=== PATIENT | female | born 1970 | race Caucasian/White ===

== ENCOUNTER 2017-08-06 09:30 | Outpatient (CLI) | payer BC ==
--- NOTE | 2017-08-06 11:32 | ULT ---
ABDOMINAL ULTRASOUND: Date: 08-06-17 History: Abdominal pain. FINDINGS: Portions of the right hepatic lobe are obscured due to shadowing from adjacent ribs which limits adeq uate evaluation of the right hepatic lobe. Left hepatic lobe demonstrates a normal sonographic appear ance. There is enlargement of the liver in craniocaudal dimensions measuring 18.5 cm. There is a nonmobile echogenic focus of posterior shadowing seen in the region of the neck of the gal lbladder measuring 1.5 cm. There is no gallbladder wall thickening or pericholecystic fluid present. The common duct measures 0.4 cm in diameter which is within normal limits. The visualized portions of the pancreas, visualized portion of the IVC, abdominal aorta, spleen, and bilateral kidneys demonstrate a normal sonographic appearance. The right kidney measures 11.4 cm in l ength with left kidney measuring 11.6 cm in length. IMPRESSION: 1. Cholelithiasis. There is a single nonmobile calculus in the gallbladder neck. No gallbladder wall thickening or pericholecystic fluid is present. 2. Common duct is normal in caliber. 3. Limited evaluation of the right hepatic lobe, primarily related to shadowing from adjacent ribs an d difficulty imaging the right hepatic lobe. No gross abnormality is appreciated. POS: [facility]
--- NOTE | 2017-08-06 11:37 | ULT ---
PELVIC ULTRASOUND WITH TRANSABDOMINAL AND TRANSVAGINAL VASCULAR DUPLEX WITH COLOR AND SPECTRAL DOPPLER IMAGING: History: 46-year-old female with right lower quadrant pain. FINDINGS: The patient has undergone prior hysterectomy. Right ovary measures 0.9 x 1.4 x 1.8 cm. The left ovary measures 1.2 x 1.8 x 2.0 cm. No evidence for solid or cystic mass within the pelvis. No abnormal flu id collection. Vascular duplex examination demonstrates vascular flow to both ovaries. No evidence for ovarian torsi on. IMPRESSION: Unremarkable post hysterectomy pelvis. Unremarkable right and left ovaries. No mass, abscess, abnorma l fluid collection or other acute process. POS: [facility]
--- NOTE | 2017-08-06 15:50 | MMO ---
BILATERAL DIGITAL SCREENING MAMMOGRAMS: FINDINGS: 46-year-old female presents for digital screening mammography. Comparison: None. FINDINGS: Scattered areas of fibroglandular density are noted in both breasts. There is an occasional typically benign calcification. No direct or indirect evidence of malignancy. This study is interpreted with the assistance of computer aided detection. IMPRESSION: BIRADS category 2 - benign findings. Continued routine screening. POS: [facility]
== END 2017-08-06 09:31 | disposition home or self-care (01) ==
LOC: SCSULT 09:30
PROVIDERS: ATTEND Family Medicine
DX: Z12.31 Encounter for screening mammogram for malignant neoplasm of breast (principal); R10.31 Right lower quadrant pain; Z90.710 Acquired absence of both cervix and uterus
CPT/HCPCS: 76700; 76856; 77067

== ENCOUNTER 2021-02-23 18:12 | Emergency (ER) | payer OTHER, SELFPAY | END 2021-02-23 21:10 | disposition home or self-care (01) | LOC: ERS 18:12 | DX: N19 Unspecified kidney failure (principal); I10 Essential (primary) hypertension; Z45.2 Encounter for adjustment and management of vascular access device | CPT/HCPCS: 99281 ==

== ENCOUNTER 2021-02-27 12:08 | Emergency (ER) | payer MEDICARE, SELFPAY ==
[2021-02-27 13:11] LABS: #Eosinphils 0.1 thou/uL (0.0-0.7); #Lymphocytes 1.6 thou/uL (1.20-3.40); #Monocytes 0.5 thou/uL (0.11-0.59); #Neutrophils 4.2 thou/uL (1.40-6.50); %Basophils 0.4 % (0.0-1.0); %Eosinophils 2.1 % (0.0-10.0); %Lymphocytes 25.2 % (21.0-51.0); %Monocytes 7.4 % (0.0-10.0); Hemoglobin 13.1 g/dL (12.0-16.0); Mean Corpuscular HGB CONC 33.7 g/dL (32.0-36.0); Mean Corpuscular Hemoglobin 31.2 pg (27.0-31.0); Mean Corpuscular Volume 92.5 fL (78.0-98.0); Platelet Count 254 thou/uL (130-400); RBC Distribution Width 14.1 % (11.5-14.5); Red Blood Cell (RBC) Count 4.22 mill/uL (4.20-5.40); White Blood Cell (WBC) Count 6.4 thou/uL (4.8-10.8)
[2021-02-27 13:38] LABS: ALT (SGPT) 21 U/L (8-55); AST (SGOT) 19 U/L (5-34); Albumin 3.7 g/dL (3.5-5.0); Alkaline Phosphatase 74 U/L (40-110); Anion Gap 13 mmol/L (10-20); BUN (Urea Nitrogen) 42 mg/dL (7.0-18.7); Bilirubin, Total 0.2 mg/dL (0.2-1.2); Calc. Creatinine Clearance 0 mL/min (70-130); Calcium 9.5 mg/dL (7.8-10.44); Carbon Dioxide 21 mmol/L (22-29); Chloride 110 mmol/L (98-107); Globulin 3.7 g/dL (2.4-3.5); Glucose 117 mg/dL (70-105); Potassium 3.8 mmol/L (3.5-5.1); Protein, Total 7.4 g/dL (6.0-8.3); Sodium 140 mmol/L (136-145)
[2021-02-27] MEDS ORDERED: Vancomycin 1 GM/200 ML BAG ONE (14:29)
[2021-02-27 16:15] LABS: SARS-CoV-2 NAA Rapid Test Not Detected (NotDetected)
== END 2021-02-27 15:56 | disposition home or self-care (01) ==
LOC: ERS 12:08
DX: T82.41XA Breakdown (mechanical) of vascular dialysis catheter, initial encounter (principal); T85.71XA Infection and inflammatory reaction due to peritoneal dialysis catheter, initial encounter; Z20.822 Contact with and (suspected) exposure to COVID-19; I10 Essential (primary) hypertension; Z86.73 Personal history of transient ischemic attack (TIA), and cerebral infarction without residual deficits; Z99.2 Dependence on renal dialysis; Z79.899 Other long term (current) drug therapy
CPT/HCPCS: 36415; 71045; 80053; 84484; 85025; 87040; 93005; 96365; J3370; U0002

== ENCOUNTER 2021-02-28 05:38 | Day surgery (SDC) | payer SELFPAY ==
[2021-02-27 16:08] VITALS: BMI 35.9
[2021-02-28] MEDS ORDERED: Fentanyl 100 MCG/2 ML VIAL ONE (06:41)
[2021-02-28] MEDS ORDERED: ceFAZolin 2 GM/DEX 5% 100 ML BAG ONE (06:59)
[2021-02-28] MEDS ORDERED: Sodium Chloride 0.9% 10 ML ONE (08:34)
[2021-02-28] MEDS ORDERED: Bupivacaine PF 0.5% 30 ML VIAL ONE (08:34)
[2021-02-28] MEDS ORDERED: Lidocaine 1% w/Epinephrine 1:100K 20 ML VIAL ONE (08:34)
[2021-02-28] MEDS ORDERED: Heparin 10,000 UNITS/ 10 ML VIAL ONE ×2 (08:34→08:43)
[2021-02-28] MEDS ORDERED: Propofol 500 MG/50 ML VIAL ONE (08:45)
[2021-02-28] MEDS ORDERED: Midazolam HCl 2 mg/2 ml Vial ONE (08:45)
[2021-02-28] MEDS ORDERED: PROPOFOL 200 MG/20 ML VIAL ONE (08:56)
[2021-02-28] MEDS ORDERED: Ondansetron PF 4 MG/2 ML Vial ONE ×2 (08:56→11:02)
== END 2021-02-28 10:45 | disposition home or self-care (01) ==
LOC: SDC 05:38
PROVIDERS: ATTEND Specialist
PROC: 05HN33Z Insertion of Infusion Device into Left Internal Jugular Vein, Percutaneous Approach (ICD-10-PCS; principal; 2021-02-28)
DX: N18.6 End stage renal disease (principal); N17.9 Acute kidney failure, unspecified; Z86.16 Personal history of COVID-19; Z79.899 Other long term (current) drug therapy; Z99.2 Dependence on renal dialysis
CPT/HCPCS: 71045; C1752; J1644; J2250; J2405; J2704; J3010; S0020

== ENCOUNTER 2022-02-11 17:30 | Outpatient (CLI) | payer MEDICARE | END 2022-02-11 17:31 | disposition home or self-care (01) | LOC: SLEEPLAB 17:30 | PROVIDERS: ATTEND Internal Medicine | DX: G47.33 Obstructive sleep apnea (adult) (pediatric) (principal); R53.83 Other fatigue; R06.83 Snoring; I10 Essential (primary) hypertension; F41.9 Anxiety disorder, unspecified; F32.9 Major depressive disorder, single episode, unspecified; G47.00 Insomnia, unspecified; E66.9 Obesity, unspecified; Z68.39 Body mass index [BMI] 39.0-39.9, adult | CPT/HCPCS: 95800 ==

== ENCOUNTER 2022-07-08 19:30 | Outpatient (CLI) | payer BC | END 2022-07-08 19:31 | disposition home or self-care (01) | LOC: SLEEPLAB 19:30 | PROVIDERS: ATTEND Internal Medicine | DX: G47.33 Obstructive sleep apnea (adult) (pediatric) (principal); R53.83 Other fatigue; R06.83 Snoring; I10 Essential (primary) hypertension; G47.10 Hypersomnia, unspecified; E66.9 Obesity, unspecified; Z68.39 Body mass index [BMI] 39.0-39.9, adult | CPT/HCPCS: 95811 ==